=== PATIENT | female | born 1980 | race Caucasian/White ===

== ENCOUNTER 2017-02-12 18:01 | Emergency (ER) | payer OTHER ==
[2017-02-12] MEDS ORDERED: hydrOXYzine HCL TAB* 50 MG PO ONE (21:48)
[2017-02-12] MEDS ORDERED: Azithromycin TAB* 250 MG PO ONE (21:48)
--- NOTE | 2017-02-12 21:48 | ED ---
Skin Complaint - HPI Summary HPI Summary: Patient SUSAN from [employer] [facility] with CC of approximately 6-8 small .5cm X .5cm pruritic erythematous lesions with central yellow pustule without drainage. She states all lesions have been draining, but just none currently. She was placed on Doxycycline 3 days ago at which times all the lesions developed. She notes to previous allergic reaction to doxycycline as an anaphylactic reaction. She states she also has been intubated before d/t a cillin allergy and states her body does not react well to antibiotics. Lyme disease was confirmed by serology 8 days ago. She prefers to have a different agent to treat her Lyme disease. Denies COSME, urinary symptoms, or other symptoms. No HX of MRSA. - History of Current Complaint Chief Complaint: EDRashSkinAbscess Time Seen by Provider: 02/12/17 20:08 Stated Complaint: POSSIBLE ALLERGIC REACTION Hx Obtained From: Patient Onset/Duration: Started Days Ago Skin Exposure Onset/Duration: Hours Ago Timing: Constant Onset Severity: Moderate Current Severity: Moderate Pain Intensity: 0 Pain Scale Used: 0-10 Numeric Skin Location: Diffuse - only to the right side Character: Pain, Redness, Raised, Painful Aggravating Symptom(s): Nothing Alleviating Symptom(s): Nothing Associated Signs & Symptoms: Negative Related History: Recent change in medication - Allergy/Home Medications Allergies/Adverse Reactions: Allergies Allergy/AdvReac Type Severity Reaction Status Date / Time Amoxicillin Allergy Swelling Verified 02/12/17 20:29 Of Face,Lips,& Throat PMH/Surg Hx/FS Hx/Imm Hx Previously Healthy: Yes - Immunization History Hx Pertussis Vaccination: No Immunizations Up to Date: Yes Infectious Disease History: No Infectious Disease History: Denies: Traveled Outside the [place] in Last 30 Days - Social History Occupation: Unemployed Lives: With Family Alcohol Use: None Hx Substance Use: No Substance Use Type: Reports: None Substance Use Comment - Amount & Last Used: hx crack use, clean for 194days Hx Tobacco Use: No Smoking Status (MU): Former Smoker Do You Chew or Dip Tobacco: No Have You Chewed or Dipped Tobacco in the LAST YEAR: No Review of Systems Constitutional: Negative Eyes: Negative Cardiovascular: Negative Respiratory: Negative Positive: no symptoms reported, see HPI Musculoskeletal: Negative Positive: Rash Neurological: Negative Psychological: Normal All Other Systems Reviewed And Are Negative: Yes Physical Exam Triage Information Reviewed: Yes Vital Signs On Initial Exam: Initial Vitals Temp Pulse Resp BP Pulse Ox 99.4 F 80 16 113/74 100 02/12/17 18:05 02/12/17 18:05 02/12/17 18:05 02/12/17 18:05 02/12/17 18:05 Completion Of Physical Exam Limited Due To: Dementia Appearance: Positive: Well-Appearing, Well-Nourished Skin: Positive: Warm, Skin Color Reflects Adequate Perfusion, Other - small .5cm X .5cm ulcerated lesions with central pustule with surrounding erythema over right side of body - 8 in count Neck: Positive: Supple, No Lymphadenopathy Respiratory/Lung Sounds: Positive: Clear to Auscultation, Breath Sounds Present Cardiovascular: Positive: Normal, RRR, Pulses are Symmetrical in both Upper and Lower Extremities Musculoskeletal: Positive: Normal, Strength/ROM Intact Neurological: Positive: Normal, Sensory/Motor Intact, Alert, Oriented to Person Place, Time, Speech Normal Psychiatric: Positive: Normal AVPU Assessment: Alert Diagnostics - Vital Signs Vital Signs Temp Pulse Resp BP Pulse Ox 02/12/17 20:27 99 F 74 16 119/83 100 02/12/17 18:05 99.4 F 80 16 113/74 100 - Laboratory Lab Statement: Any lab studies that have been ordered have been reviewed, and results considered in the medical decision making process. Course/Dx - Course Course Of Treatment: small .5cm X .5cm ulcerated lesions with central yellow pustule with surrounding erythema and without drainage over right side of body - 8 in count. Patient states the lesions began immediately following doxycycline medication. D/t penicillin allergy, will switch to erythromycin as UTD shows this covers as well as doxycycline in some studies for Lyme disease. At this point, will treat as a drug eruption from doxy. If antibiotic change does not affect the lesions or worsening lesions develop, provider expressed will need to discontinue the Lyme antibiotics at that time, and will likely place her on an antibiotic for skin infections. Patient agrees to return if skin lesions remain. - Differential Diagnoses - Skin Complaint Differential Diagnoses: Angioedema, Cellulitis, Contact Dermatitis, Drug Intoxication, Local Allergic Reaction, Medication; Adverse Reaction - Diagnoses Provider Diagnoses: Drug eruption Discharge - Discharge Plan Condition: Stable Disposition: HOME Prescriptions: Azithromycin TAB* [Zithromax TAB (Z-ARLEY) 250 mg #6 tabs] 2 tab PO .TODAY, THEN 1 DAILY #1 arley Ondansetron ODT TAB* [Zofran 4 MG Odt TAB*] 4 mg PO Q6H PRN #12 tab.odt MDD 4 PRN Reason: Nausea hydrOXYzine HCL TAB* [Atarax 25 MG TAB*] 25 mg PO QID PRN #16 tab MDD 4 PRN Reason: Itching Patient Education Materials: Antibiotic Medication Allergy (ED), Adverse Drug Reaction (ED) Referrals: Non Staff,Doctor [Primary Care Provider] - Additional Instructions: Take the azithromycin as prescribed Take the hydroxyzine up to four times daily as needed for itching, but Benadryl 50mg is best at night. Zofran has been prescribed for the associated nausea If symptoms become worse or do not improve, come back to ED.
[2017-02-12] MEDS ORDERED: hydrOXYzine HCL TAB* 25 MG PO ONE (21:49)
[2017-02-12] MEDS ORDERED: Ondansetron ODT TAB* 4 MG SL ONE ×2 (21:50→21:51)
[2017-02-12 22:17] VITALS: BP 117/81
== END 2017-02-12 22:27 | disposition home or self-care (01) ==
LOC: ED 18:01
DX: L27.0 Generalized skin eruption due to drugs and medicaments taken internally (principal); R21 Rash and other nonspecific skin eruption; Z87.891 Personal history of nicotine dependence
CPT/HCPCS: 99282; A9270-GY

== ENCOUNTER 2017-02-13 14:58 | Emergency (ER) | payer OTHER ==
[2017-02-13 15:21] VITALS: BP 104/75
[2017-02-13] MEDS ORDERED: Azithromycin TAB* 250 MG PO ONE (16:18)
[2017-02-13] MEDS ORDERED: Ondansetron ODT TAB* 4 MG SL ONE ×2 (16:19)
--- NOTE | 2017-02-13 16:37 | ED ---
Skin Complaint - HPI Summary HPI Summary: Patient presents to ED with request for medication. She was seen in ED yesterday and given prescription for erythromycin to cover lyme disease ( diagnosed at another facility 9 days ago.) Patient is allergic to doxycycline and amoxicillin. 500mg of erythrymycin given in ED. Patient is from [employer] [facility] program and returns today because prescriptions will not be delivered until tomorrow. She is also requesting zofran for associated nausea with the medication. Rash which was presumably a drug rash from the doxycycline is improving. No other complaints. - History of Current Complaint Chief Complaint: EDPrescriptionNeeded Time Seen by Provider: 02/13/17 15:54 Stated Complaint: SYMPTOMS OF lyme disease Hx Obtained From: Patient Onset/Duration: Started Days Ago Skin Exposure Onset/Duration: Days Ago Timing: Constant Onset Severity: Mild Current Severity: Mild Pain Intensity: 0 Pain Scale Used: 0-10 Numeric Skin Location: Diffuse Aggravating Symptom(s): Nothing Alleviating Symptom(s): Nothing Associated Signs & Symptoms: Nausea Related History: Recent change in medication - Allergy/Home Medications Allergies/Adverse Reactions: Allergies Allergy/AdvReac Type Severity Reaction Status Date / Time Amoxicillin Allergy Swelling Verified 02/12/17 20:29 Of Face,Lips,& Throat PMH/Surg Hx/FS Hx/Imm Hx Previously Healthy: Yes - Immunization History Hx Pertussis Vaccination: No Immunizations Up to Date: No Infectious Disease History: Denies: Traveled Outside the [place] in Last 30 Days - Social History Occupation: Unemployed Lives: Alone Alcohol Use: None Hx Substance Use: No Substance Use Type: Reports: None Substance Use Comment - Amount & Last Used: hx crack use, clean for 194days Hx Tobacco Use: No Smoking Status (MU): Former Smoker Review of Systems Constitutional: Negative Eyes: Negative Cardiovascular: Negative Respiratory: Negative Positive: no symptoms reported, see HPI Musculoskeletal: Negative Positive: Other - improving pustules from yesterday visit Neurological: Negative Psychological: Normal All Other Systems Reviewed And Are Negative: Yes Physical Exam Triage Information Reviewed: Yes Vital Signs On Initial Exam: Initial Vitals Temp Pulse Resp BP Pulse Ox 98.6 F 80 18 104/75 100 02/13/17 15:16 02/13/17 15:16 02/13/17 15:16 02/13/17 15:16 02/13/17 15:16 Vital Signs Reviewed: Yes Appearance: Positive: Well-Appearing, Well-Nourished Skin: Positive: Warm, Skin Color Reflects Adequate Perfusion, Other - pustules located over right arm and right leg. improving since yesterday after changing medication Eyes: Positive: Normal, SHAWN, Conjunctiva Clear Neck: Positive: Supple, No Lymphadenopathy Respiratory/Lung Sounds: Positive: Clear to Auscultation, Breath Sounds Present Cardiovascular: Positive: Normal, RRR, Pulses are Symmetrical in both Upper and Lower Extremities Musculoskeletal: Positive: Normal, Strength/ROM Intact Neurological: Positive: Sensory/Motor Intact, Speech Normal Psychiatric: Positive: Normal Diagnostics - Vital Signs Vital Signs Temp Pulse Resp BP Pulse Ox 02/13/17 15:16 98.6 F 80 18 104/75 100 - Laboratory Lab Statement: Any lab studies that have been ordered have been reviewed, and results considered in the medical decision making process. Course/Dx - Course Course Of Treatment: Patient given erythrmycin 250mg with zofran in ED. 1 dose zofran to go home. Presciription will arrive tomorrow. Patient states rash is improving. - Differential Diagnoses - Skin Complaint Differential Diagnoses: Allergic Reaction, Contact Dermatitis, Drug Rash, Jacques-Con Syndrome - Diagnoses Provider Diagnoses: Medication refill Discharge - Discharge Plan Condition: Stable Disposition: HOME Patient Education Materials: Erythromycin (By mouth) Referrals: No Primary Care Phys,NOPCP [Primary Care Provider] - Additional Instructions: Take 3 more days (February 14, February 15, February 16) at 250mg (1 dose) each of erythromycin. Dispense of other/extra tabs properly. Use the zofran as needed for nausea. Come back to ED if symptoms continue or worsen.
== END 2017-02-13 16:41 | disposition home or self-care (01) ==
LOC: ED 14:58
DX: A69.20 Lyme disease, unspecified (principal); Z88.1 Allergy status to other antibiotic agents; Z87.891 Personal history of nicotine dependence
CPT/HCPCS: 99282; A9270-GY

== ENCOUNTER 2017-02-19 10:55 | Emergency (ER) | payer OTHER ==
[2017-02-19 14:37] LABS: Hematocrit 40 % (35-47); Hemoglobin 13.3 g/dl (12.0-16.0); Mean Corpuscular HGB Conc 34 g/dl (31-36); Mean Corpuscular Hemoglobin 31 pg (27-31); Mean Corpuscular Volume 93 fL (80-97); Mean Platelet Volume 9 um3 (7.4-10.4); Red Blood Count 4.28 10^6/ul (4.0-5.4); Red Cell Distribution Width 13 % (10.5-15); White Blood Count 7.3 10^3/ul (3.5-10.8)
[2017-02-19 14:49] LABS: ALT 17 U/L (7-52); AST 21 U/L (13-39); Albumin 4.2 g/dL (3.2-5.2); Alkaline Phosphatase 37 U/L (34-104); Anion Gap 5 mmol/L (2-11); BUN/Creatinine Ratio 13.9 (8-20); Blood Urea Nitrogen 10 mg/dL (6-24); CO2 Carbon Dioxide 24 mmol/L (22-32); Calcium 9.3 mg/dL (8.6-10.3); Chloride 107 mmol/L (101-111); EGFR African American 117.9 (>60); EGFR Non-African American 91.7 (>60); Globulin 2.6 g/dL (2-4); Glucose 89 mg/dL (70-100); Magnesium 2.2 mg/dL (1.9-2.7); Potassium 3.9 mmol/L (3.5-5.0); Sodium 136 mmol/L (133-145); Total Protein 6.8 g/dL (6.4-8.9)
[2017-02-19 15:41] VITALS: BP 110/73
[2017-02-19] MEDS ORDERED: carBAMazepine ER TAB(*) 200 MG PO ONE (15:46)
[2017-02-19] MEDS ORDERED: carBAMazepine TAB(*) 200 MG PO ONE (17:00)
--- NOTE | 2017-02-20 14:58 | ED ---
Alexis Copeland Rebecca, scribed for Danis Alfonso MD on 02/19/17 at 1349 . Neurological HPI - HPI Summary HPI Summary: Pt is a 36 y/o F BIBA who presents to ED s/p seizure, which occurred last night. Episode was unwitnessed, pt is unsure of length and type. Reports that her head is "foggy" and that her "nerve endings are sore." Sx aggravated by recent stress and "overworking," alleviated spontaneously. Additionally c/o increased sleep and a pruritic rash on her back. PMHx seizures. Previously was on Tegretol, which she took herself off of 1 year ago due to side effects. Neurologist is Dr. Moreno. Last sz occurred a "long time ago," and she additionally experienced a TIA. Prior episode presented with pain in her back and abdomen and diffuse bodily numbness. Pt was evaluated by [facility] and was D/C after approximately 8 hours. - History of Current Complaint Chief Complaint: EDSeizure Stated Complaint: SEIZURE Time Seen by Provider: 02/19/17 13:48 Hx Obtained From: Patient Onset/Duration: Sudden Onset Seizure Severity: Self Limited Number of Seizures: 1 Pain Intensity: 0 Pain Scale Used: 0-10 Numeric Aggravating: Exertion - "overworking", Stress Alleviating: Spontanious Resolution - Allergy/Home Medications Allergies/Adverse Reactions: Allergies Allergy/AdvReac Type Severity Reaction Status Date / Time Amoxicillin Allergy Swelling Verified 02/12/17 20:29 Of Face,Lips,& Throat PMH/Surg Hx/FS Hx/Imm Hx Endocrine/Hematology History: Denies: Hx Diabetes Neurological History: Reports: Hx Seizures - Surgical History Surgery Procedure, Year, and Place: APPY Infectious Disease History: No Infectious Disease History: Denies: Traveled Outside the [place] in Last 30 Days - Family History Known Family History: Positive: Other - Cervical and Ovarian CA (diffuse) Negative: Hypertension, Diabetes - Social History Alcohol Use: None Hx Substance Use: No Substance Use Type: Reports: None Substance Use Comment - Amount & Last Used: hx crack use, clean for 194days Hx Tobacco Use: No Smoking Status (MU): Former Smoker Review of Systems Positive: Rash - pruritic rash on back Neurological: Other - s/p seizure - "foggy" head and "sore" nerve endings; increased sleep All Other Systems Reviewed And Are Negative: Yes Physical Exam Triage Information Reviewed: Yes Vital Signs On Initial Exam: Initial Vitals Temp Pulse Resp BP Pulse Ox 98.2 F 75 17 99/74 100 02/19/17 11:22 02/19/17 11:22 02/19/17 11:22 02/19/17 11:22 02/19/17 11:22 Vital Signs Reviewed: Yes Appearance: Positive: Well-Appearing, No Pain Distress Skin: Positive: Warm, Dry, Other - Macular punctate rash on her R flank that has excoriations and a very excoriated area on her R deltoid Head/Face: Positive: Normal Head/Face Inspection Eyes: Positive: Normal Neck: Positive: Supple, Nontender Respiratory/Lung Sounds: Positive: Clear to Auscultation, Breath Sounds Present Cardiovascular: Positive: RRR Abdomen Description: Positive: Nontender, Soft Bowel Sounds: Positive: Present Musculoskeletal: Positive: Normal Neurological: Positive: Normal, Sensory/Motor Intact, Alert, Oriented to Person Place, Time, CN Intact II-III Psychiatric: Positive: Normal Diagnostics - Vital Signs Vital Signs Temp Pulse Resp BP Pulse Ox 02/19/17 13:47 73 87 02/19/17 13:14 71 96 02/19/17 13:13 70 96 02/19/17 13:12 70 96 02/19/17 13:11 69 96 02/19/17 13:10 70 96 02/19/17 13:09 67 96 02/19/17 13:08 69 96 02/19/17 13:07 71 96 02/19/17 13:06 72 97 02/19/17 13:05 71 97 02/19/17 13:04 71 97 02/19/17 13:00 69 97 02/19/17 12:00 72 97 02/19/17 11:30 76 99/70 98 02/19/17 11:26 98.2 F 79 17 98/74 99 02/19/17 11:25 76 99 02/19/17 11:23 99/80 02/19/17 11:22 98.2 F 75 17 99/74 100 - Laboratory Lab Results: Lab Results 02/19/17 02/19/17 02/19/17 Range/Units 14:26 14:26 14:26 WBC 7.3 (3.5-10.8) 10^3/ul RBC 4.28 (4.0-5.4) 10^6/ul Hgb 13.3 (12.0-16.0) g/dl Hct 40 (35-47) % MCV 93 (80-97) fL MCH 31 (27-31) pg MCHC 34 (31-36) g/dl RDW 13 (10.5-15) % Plt Count 236 (150-450) 10^3/ul MPV 9 (7.4-10.4) um3 Neut % (Auto) 57.2 (38-83) % Lymph % (Auto) 33.5 (25-47) % Radford % (Auto) 6.6 (1-9) % Eos % (Auto) 1.8 (0-6) % Baso % (Auto) 0.9 (0-2) % Absolute Neuts (auto) 4.2 (1.5-7.7) 10^3/ul Absolute Lymphs (auto) 2.4 (1.0-4.8) 10^3/ul Absolute Monos (auto) 0.5 (0-0.8) 10^3/ul Absolute Eos (auto) 0.1 (0-0.6) 10^3/ul Absolute Basos (auto) 0.1 (0-0.2) 10^3/ul Absolute Nucleated RBC 0.01 10^3/ul Nucleated RBC % 0.2 INR (Anticoag Therapy) 0.92 (0.89-1.11) Sodium 136 (133-145) mmol/L Potassium 3.9 (3.5-5.0) mmol/L Chloride 107 (101-111) mmol/L Carbon Dioxide 24 (22-32) mmol/L Anion Gap 5 (2-11) mmol/L BUN 10 (6-24) mg/dL Creatinine 0.72 (0.51-0.95) mg/dL Est GFR ( Amer) 117.9 (>60) Est GFR (Non-Af Amer) 91.7 (>60) BUN/Creatinine Ratio 13.9 (8-20) Glucose 89 (70-100) mg/dL Lactic Acid (0.5-2.0) mmol/L Calcium 9.3 (8.6-10.3) mg/dL Magnesium 2.2 (1.9-2.7) mg/dL Total Bilirubin 0.50 (0.2-1.0) mg/dL AST 21 (13-39) U/L ALT 17 (7-52) U/L Alkaline Phosphatase 37 (34-104) U/L Total Protein 6.8 (6.4-8.9) g/dL Albumin 4.2 (3.2-5.2) g/dL Globulin 2.6 (2-4) g/dL Albumin/Globulin Ratio 1.6 (1-3) Beta HCG, Quant < 0.60 mIU/mL 02/19/17 Range/Units 14:26 WBC (3.5-10.8) 10^3/ul RBC (4.0-5.4) 10^6/ul Hgb (12.0-16.0) g/dl Hct (35-47) % MCV (80-97) fL MCH (27-31) pg MCHC (31-36) g/dl RDW (10.5-15) % Plt Count (150-450) 10^3/ul MPV (7.4-10.4) um3 Neut % (Auto) (38-83) % Lymph % (Auto) (25-47) % Radford % (Auto) (1-9) % Eos % (Auto) (0-6) % Baso % (Auto) (0-2) % Absolute Neuts (auto) (1.5-7.7) 10^3/ul Absolute Lymphs (auto) (1.0-4.8) 10^3/ul Absolute Monos (auto) (0-0.8) 10^3/ul Absolute Eos (auto) (0-0.6) 10^3/ul Absolute Basos (auto) (0-0.2) 10^3/ul Absolute Nucleated RBC 10^3/ul Nucleated RBC % INR (Anticoag Therapy) (0.89-1.11) Sodium (133-145) mmol/L Potassium (3.5-5.0) mmol/L Chloride (101-111) mmol/L Carbon Dioxide (22-32) mmol/L Anion Gap (2-11) mmol/L BUN (6-24) mg/dL Creatinine (0.51-0.95) mg/dL Est GFR ( Amer) (>60) Est GFR (Non-Af Amer) (>60) BUN/Creatinine Ratio (8-20) Glucose (70-100) mg/dL Lactic Acid 0.8 (0.5-2.0) mmol/L Calcium (8.6-10.3) mg/dL Magnesium (1.9-2.7) mg/dL Total Bilirubin (0.2-1.0) mg/dL AST (13-39) U/L ALT (7-52) U/L Alkaline Phosphatase (34-104) U/L Total Protein (6.4-8.9) g/dL Albumin (3.2-5.2) g/dL Globulin (2-4) g/dL Albumin/Globulin Ratio (1-3) Beta HCG, Quant mIU/mL Result Diagrams: 02/19/17 14:26 02/19/17 14:26 Lab Statement: Any lab studies that have been ordered have been reviewed, and results considered in the medical decision making process. Re-Evaluation - Re-Evaluation First Eval Re-Evaluation Time: 15:03 Change: Unchanged Comment: Discussed lab results with pt. Course/Dx - Course Assessment/Plan: Ms. Bunch is a 36 y/o F who presents s/p unwitnessed seizure c/o "foggy" head and sore nerve endings. Additionally c/o increased sleep and a pruritic rash on her back. PMHx seizures. Administered Tegretol in the ED. She will be D/C to home with a Dx of seizure and a followup with Dr. Cuevas. She was started back on her tegretol at a low dose and will need to F/ U as it will likely need to be increased. - Diagnoses Provider Diagnoses: Seizure Discharge - Discharge Plan Condition: Stable Disposition: HOME Prescriptions: Triamcinolone 0.1% CREAM(NF) [Kenalog Cream 0.1%(NF)] 1 applic TOPICAL BID #60 tube carBAMazepine ER TAB(*) [TEGretol Xr TAB(*)] 200 mg PO BID #20 tab.xr Patient Education Materials: Epilepsy (ED) Referrals: Jack Cuevas MD [Medical Doctor] - 3 Days The documentation as recorded by the Alexis echeverria Rebecca accurately reflects the service I personally performed and the decisions made by , Danis Alfonso MD.
== END 2017-02-19 17:00 | disposition home or self-care (01) ==
LOC: ED 10:55
DX: R56.9 Unspecified convulsions (principal); R21 Rash and other nonspecific skin eruption; Z87.891 Personal history of nicotine dependence
CPT/HCPCS: 36415; 80053; 83605; 83735; 84702; 85025; 85610; 99283; A9270-GY

== ENCOUNTER → 2017-02-23 13:25 | Emergency (ER) | payer OTHER ==
[2017-02-23 16:45] LABS: Albumin 4.1 g/dL (3.2-5.2); EGFR African American 121.8 (>60); EGFR Non-African American 94.7 (>60); Globulin 2.7 g/dL (2-4); Magnesium 2.3 mg/dL (1.9-2.7); Total Bilirubin 0.2 mg/dL (0.2-1.0); Total Protein 6.8 g/dL (6.4-8.9)
[2017-02-23 16:48] VITALS: BP 107/59
[2017-02-23 17:02] LABS: Hematocrit 39 % (35-47); Mean Corpuscular HGB Conc 34 g/dl (31-36); Mean Corpuscular Hemoglobin 31 pg (27-31); Mean Corpuscular Volume 92 fL (80-97); Mean Platelet Volume 9 um3 (7.4-10.4); Red Blood Count 4.17 10^6/ul (4.0-5.4); Red Cell Distribution Width 13 % (10.5-15); White Blood Count 5.1 10^3/ul (3.5-10.8)
[2017-02-23 17:07] LABS: Urine Bacteria Absent (Absent); Urine Bilirubin Negative (Negative); Urine Glucose Negative (Negative); Urine Nitrite Negative (Negative)
[2017-02-23 17:27] LABS: Carbamazepine 13.5 mcg/mL (4.0-12.0)
--- NOTE | 2017-02-26 07:01 | ED ---
vinod Copeland Timothy, scribed for Jose Martin Mina MD on 02/23/17 at 1548 . Altered Mental Status - HPI Summary HPI Summary: Karine Bunch is a 36 yo female presenting to [facility] with AMS, feeling like her equilibrium is off and lethargic since starting tegretol 02/20/17, and that she had grapefruit. She presented to [facility] 02/19/17 with seizure. She is here for her tegretol level. Per EMS, she developed 5/10 CP on arrival to [facility]. She states she is also on antibiotics for a diffuse pruritic, purulent, rash. She also claims a low-grade fever for the past 10 days. She denies any urinary Sx. She states her menstrual period for the past 3 cycles has only lasted one day. She has been feeling lethargic for the past 20 days. She states that she is back on tegretol because of her seizure 02/19/17. Her MHx includes seizure, appendectomy. - History Of Current Complaint Chief Complaint: EDGeneral Stated Complaint: MED CHANGE Time Seen by Provider: 02/23/17 15:30 Hx Obtained From: Patient Onset/Duration: Unknown, Still Present Timing: Constant Severity Initially: Moderate Severity Currently: Moderate Character: Confusion, Lethargy Associated Signs And Symptoms: Positive: Dizziness - Allergies/Home Medications Allergies/Adverse Reactions: Allergies Allergy/AdvReac Type Severity Reaction Status Date / Time Amoxicillin Allergy Swelling Verified 02/12/17 20:29 Of Face,Lips,& Throat PMH/Surg Hx/FS Hx/Imm Hx Endocrine/Hematology History: Denies: Hx Diabetes Neurological History: Reports: Hx Seizures - Surgical History Surgery Procedure, Year, and Place: APPY Infectious Disease History: Denies: Traveled Outside the [place] in Last 30 Days - Family History Known Family History: Positive: Other - Cervical and Ovarian CA (diffuse) Negative: Hypertension, Diabetes - Social History Alcohol Use: None Hx Substance Use: No Substance Use Type: Reports: None Substance Use Comment - Amount & Last Used: hx crack use, clean for 194days Hx Tobacco Use: No Smoking Status (MU): Former Smoker Review of Systems Positive: Fever. Negative: Chills Eyes: Negative Negative: Erythema ENT: Negative Negative: Sore Throat Positive: Chest Pain Respiratory: Negative Negative: Shortness Of Breath, Cough Gastrointestinal: Negative Negative: Abdominal Pain, Vomiting, Nausea Genitourinary: Negative Negative: dysuria, hematuria Musculoskeletal: Negative Negative: Edema - legs Positive: Rash - diffuse pruritic, purulent Neurological: Other - lethargy, "equilibrium off", seizure 02/19/17 Psychological: Normal All Other Systems Reviewed And Are Negative: Yes Physical Exam - Summary Physical Exam Summary: Constitutional: Well-developed, Well-nourished, Alert. (-) Distressed Skin: Warm, Dry HENT: Eyes: Conjunctiva normal Neck: Musculoskeletal ROM normal neck. (-) JVD, (-) Stridor, (-) Tracheal deviation Cardio: Rhythm regular, rate normal, Heart sounds normal; Intact distal pulses; The pedal pulses are 2+ and symmetric. Radial pulses are 2+ and symmetric. (-) Murmur Pulmonary/Chest wall: Effort normal. (-) Respiratory distress, (-) Wheezes, (-) Rales Abd: Soft. (-) Tenderness, (-) Distension, (-) Guarding, (-) Rebound Musculoskeletal: (-) Edema Lymph: (-) Cervical adenopathy Neuro: Alert, Oriented x3, Strength normal, Cranial nerves II-XII are grossly intact. (-) Dysmetria, (-) Nystagmus, (-) Ataxia by finger to nose testing, (-) Sensory deficit. Rhonberg's negative. Psych: Mood and affect Normal Triage Information Reviewed: Yes Vital Signs On Initial Exam: Initial Vitals Temp Pulse Resp BP Pulse Ox 98.1 F 91 18 109/71 96 02/23/17 14:13 02/23/17 14:13 02/23/17 14:13 02/23/17 14:13 02/23/17 14:13 Vital Signs Reviewed: Yes Diagnostics - Vital Signs Vital Signs Temp Pulse Resp BP Pulse Ox 02/23/17 14:13 98.1 F 91 18 109/71 96 - Laboratory Result Diagrams: 02/23/17 16:13 02/23/17 16:12 Lab Statement: Any lab studies that have been ordered have been reviewed, and results considered in the medical decision making process. - EKG 1429 Cardiac Rate: NL - 79 BPM EKG Interpretation: NSR @ 79 BPM, no STEMI. Altered Mental Statu Course/Dx - Course Assessment/Plan: Karine Bunch is a 36 yo female presenting to [facility] with the feeling of "off equilibrium" and lethargy since beginning tegretol 02/20/17. She ate grapefruit while on antibiotics as well. She was seen at [facility] 02/19/17 for seizure. Of note is her carbamazepine levels of 13.5. Pt states she does not want to be on tegretol, but feels she has no other option. Pt expresses the wish to be discharged. After clinical examination and review of her lab work, she will be discharged home with tegretol toxicity and appropriate instructions. - Diagnoses Discharge Diagnoses: Tegretol toxicity Discharge - Discharge Plan Condition: Stable Disposition: HOME Patient Education Materials: Carbamazepine (By mouth) Forms: *Work Release Referrals: [facility] [Outside] - 2 Days Additional Instructions: Please follow up with the primary care physician provided regarding your visit to the emergency department. Take 100mg of tegretol twice a day, half of a 200 mg tablet, for the next week. You need 24 hours of bed rest. Return to the emergency department with any new or recurring symptoms. The documentation as recorded by the vinod echeverria Timothy accurately reflects the service I personally performed and the decisions made by me, Jose Martin Mina MD.
--- NOTE | 2017-02-26 09:01 | PN ---
Progress Note - Progress Note Note: Seen for AMS, med change. Patient's urine preliminary results grew >100,000 of streptococcus gallolyticus. Also normal jose armando. Will wait for final culture results to see if patient is having symptoms and treatment is needed. No change needed at this time.
--- NOTE | 2017-02-27 09:47 | PN ---
Progress Note - Progress Note Note: Patient urine culture grew Strept gallolyticus that final cultures show is resistant to most antibiotics. She denies any UTI symptoms according to chart. attempted to call [facility] to get a hold of patient and patient is no longer patient of [facility]. tried other phone number and person answered and stated had wrong phone number. Would prescribe levofloxacin since is inhibit as all other medication sensitive to is IV and patient has anaphylactic reaction to PCN. Patient pharmacy is [facility] which is used by [facility] so can not send script there. Called patient at [facility] and patient answered. Patient denies any UTI symptoms at all so will not treat.
== END | disposition home or self-care (01) ==
LOC: ED 13:25
DX: T42.1X1A Poisoning by iminostilbenes, accidental (unintentional), initial encounter (principal); R42 Dizziness and giddiness; R07.9 Chest pain, unspecified; R21 Rash and other nonspecific skin eruption
CPT/HCPCS: 36415; 80053; 80156; 81003; 81015; 83735; 85025; 87077; 87086; 87186; 93005; 99281

== ENCOUNTER 2017-02-26 14:32 | Emergency (ER) | payer OTHER ==
[2017-02-26 15:54] LABS: Hematocrit 39 % (35-47); Hemoglobin 12.8 g/dl (12.0-16.0); Mean Corpuscular HGB Conc 33 g/dl (31-36); Mean Corpuscular Hemoglobin 31 pg (27-31); Mean Corpuscular Volume 93 fL (80-97); Mean Platelet Volume 9 um3 (7.4-10.4); Red Blood Count 4.17 10^6/ul (4.0-5.4); Red Cell Distribution Width 13 % (10.5-15); White Blood Count 6.5 10^3/ul (3.5-10.8)
[2017-02-26 16:19] LABS: Albumin 4.3 g/dL (3.2-5.2); BUN/Creatinine Ratio 16.4 (8-20); Calcium 9.5 mg/dL (8.6-10.3); EGFR African American 128.1 (>60); EGFR Non-African American 99.6 (>60); Globulin 2.6 g/dL (2-4); Magnesium 1.9 mg/dL (1.9-2.7); Potassium 3.9 mmol/L (3.5-5.0); Total Bilirubin 0.2 mg/dL (0.2-1.0); Total Protein 6.9 g/dL (6.4-8.9)
[2017-02-26 16:28] LABS: Carbamazepine 5.3 mcg/mL (4.0-12.0)
[2017-02-26 16:48] VITALS: BP 124/82
--- NOTE | 2017-02-26 22:01 | ED ---
Luis Fernando Copeland Auryana, scribed for Raúl Saavedra MD on 02/26/17 at 1528 . Dizziness - HPI Summary HPI Summary: 36 year old female presents with dizziness starting 3 days ago. She reports that she has felt increasingly off balance for the last few days and has had a lowered dose of Tegretol. She was recently admitted due to high levels of Tegretol (patient was on doxycycline at the time)- and since then has had a lower dose. She is requesting a prescription for Tegretol so that she can return to her normal dose-feels that her symptoms are directly related. She is a patient at [employer]. PMHx is significant for seizures and cocaine abuse ( currently clean). She denies any alcohol or recreational drug use. - History Of Current Complaint Chief Complaint: EDPrescriptionNeeded Stated Complaint: DIZZY Time Seen by Provider: 02/26/17 14:58 Hx Obtained From: Patient Onset/Duration: Still Present Timing: Constant Severity Initially: Mild Severity Currently: Mild Character: Dizzy Aggravating Factor(s): Other - recent medication decrease Associated Signs And Symptoms: Positive: Unsteady Gait - "off balance", Change In Medication - Allergies/Home Medications Allergies/Adverse Reactions: Allergies Allergy/AdvReac Type Severity Reaction Status Date / Time Amoxicillin Allergy Swelling Verified 02/12/17 20:29 Of Face,Lips,& Throat PMH/Surg Hx/FS Hx/Imm Hx Endocrine/Hematology History: Denies: Hx Diabetes Neurological History: Reports: Hx Seizures Psychiatric History: Reports: Hx Substance Abuse - cocaine - currently clean 103 days (02/26/17) - Surgical History Surgery Procedure, Year, and Place: [facility] Infectious Disease History: No Infectious Disease History: Denies: Traveled Outside the [place] in Last 30 Days - Family History Known Family History: Positive: Other - Cervical and Ovarian CA (diffuse) Negative: Hypertension, Diabetes - Social History Occupation: Unemployed Lives: [facility] - [employer] Alcohol Use: None Hx Substance Use: No - currently no SA Substance Use Type: Reports: Cocaine Substance Use Comment - Amount & Last Used: hx crack use, clean for 194days Hx Tobacco Use: No Smoking Status (MU): Former Smoker Review of Systems Positive: Other - "off-balance", dizziness Eyes: Negative ENT: Negative Cardiovascular: Negative Respiratory: Negative Gastrointestinal: Negative Genitourinary: Negative Musculoskeletal: Negative Skin: Negative Neurological: Negative Psychological: Normal All Other Systems Reviewed And Are Negative: Yes Physical Exam - Summary Physical Exam Summary: The patient is well-nourished in no acute distress and in no acute pain. The skin is warm and dry and skin color reflects adequate perfusion. Good skin turgor. HEENT: The head is normocephalic and atraumatic. The pupils are equal and reactive. EOMI. The conjunctivae are clear and without drainage. Nares are patent and without drainage. Mouth reveals moist mucous membranes and the throat is without erythema and exudate. The external ears are intact. The ear canals are patent and without drainage. The tympanic membranes are intact. Neck is supple with full range of motion and non-tender. There are no carotid bruits. There is no neck vein distension. Respiratory: Chest is non-tender. Lungs are clear to auscultation and breath sounds are symmetrical and equal. Cardiovascular: Hear is regular rate and rhythm. There is no murmur or rub auscultated. There is no peripheral edema and pulses are symmetrical and equal. Abdomen: The abdomen is soft and non-tender. There are normal bowel sounds heard in all four quadrants and there is no organomegaly palpated. Musculoskeletal: There is no back pain noted. Extremities are non-tender with full range of motion-good strength in extremities. There is good capillary refill. There is no peripheral edema or calf tenderness elicited. Neurological: Patient is alert and oriented to person, place and time. The patient has symmetrical motor strength in all four extremities. Cranial nerves are grossly intact. Deep tendon reflexes are symmetrical and equal in all four extremities. Psychiatric: The patient appears anxious. Triage Information Reviewed: Yes Vital Signs On Initial Exam: Initial Vitals Temp Pulse Resp BP Pulse Ox 98.7 F 94 22 123/85 100 02/26/17 14:36 02/26/17 14:36 02/26/17 14:36 02/26/17 14:36 02/26/17 14:36 Vital Signs Reviewed: Yes Diagnostics - Vital Signs Vital Signs Temp Pulse Resp BP Pulse Ox 02/26/17 14:38 98.7 F 96 22 132/85 99 02/26/17 14:36 98.7 F 94 22 123/85 100 - Laboratory Lab Results: Lab Results 02/26/17 02/26/17 Range/Units 15:40 15:40 WBC 6.5 (3.5-10.8) 10^3/ul RBC 4.17 (4.0-5.4) 10^6/ul Hgb 12.8 (12.0-16.0) g/dl Hct 39 (35-47) % MCV 93 (80-97) fL MCH 31 (27-31) pg MCHC 33 (31-36) g/dl RDW 13 (10.5-15) % Plt Count 230 (150-450) 10^3/ul MPV 9 (7.4-10.4) um3 Neut % (Auto) 39.9 (38-83) % Lymph % (Auto) 51.2 H (25-47) % [place] % (Auto) 8.2 (1-9) % Eos % (Auto) 0 (0-6) % Baso % (Auto) 0.7 (0-2) % Absolute Neuts (auto) 2.6 (1.5-7.7) 10^3/ul Absolute Lymphs (auto) 3.4 (1.0-4.8) 10^3/ul Absolute Monos (auto) 0.5 (0-0.8) 10^3/ul Absolute Eos (auto) 0 (0-0.6) 10^3/ul Absolute Basos (auto) 0 (0-0.2) 10^3/ul Absolute Nucleated RBC 0.01 10^3/ul Nucleated RBC % 0.1 Sodium 136 (133-145) mmol/L Potassium 3.9 (3.5-5.0) mmol/L Chloride 106 (101-111) mmol/L Carbon Dioxide 25 (22-32) mmol/L Anion Gap 5 (2-11) mmol/L BUN 11 (6-24) mg/dL Creatinine 0.67 (0.51-0.95) mg/dL Est GFR ( Amer) 128.1 (>60) Est GFR (Non-Af Amer) 99.6 (>60) BUN/Creatinine Ratio 16.4 (8-20) Glucose 101 H (70-100) mg/dL Calcium 9.5 (8.6-10.3) mg/dL Magnesium 1.9 (1.9-2.7) mg/dL Total Bilirubin 0.20 (0.2-1.0) mg/dL AST 19 (13-39) U/L ALT 17 (7-52) U/L Alkaline Phosphatase 48 (34-104) U/L Total Protein 6.9 (6.4-8.9) g/dL Albumin 4.3 (3.2-5.2) g/dL Globulin 2.6 (2-4) g/dL Albumin/Globulin Ratio 1.7 (1-3) Carbamazepine 5.3 (4.0-12.0) mcg/mL Result Diagrams: 02/26/17 15:40 02/26/17 15:40 Lab Statement: Any lab studies that have been ordered have been reviewed, and results considered in the medical decision making process. Re-Evaluation - Re-Evaluation First Eval Re-Evaluation Time: 16:35 - discussed labs and plan of action Change: Unchanged Comment: complains of Left ahdn numbness but no motor weakness present. Patient agrees to discharge. Dizzy Course/Dx - Course Assessment/Plan: 36 year old female presents with dizziness starting 3 days ago. She reports that she has felt increasingly off balance for the last few days and has had a lowered dose of Tegretol. She was recently admitted due to high levels of Tegretol and since then has had a lower dose 100 mg. She is requesting a prescription for 200 mg Tegretol so that she can return to her normal dose-feels that her symptoms are directly related. PMHx is significant for seizures and cocaine abuse (currently clean). Labs ordered: within normal limits. Carbamazepine levels taken (5.3). Re-evaluation of patient to discuss labs and plan of action. Complains of left hand numbness but no motor weakness. Patient agrees with discharge. Will discharge patient home recommending continuation of Tegretol 200mg twice daily. Diagnosis of seizure disorder - no evidence of tegretol toxicity (WNL on lab work). - Diagnoses Differential Diagnosis/HQI/PQRI: Hypovolemia, Metabolic Abnormality, Seizure, Other - tegretol toxicity, hyponatremia Provider Diagnoses: Seizure disorder Discharge - Discharge Plan Condition: Stable Disposition: HOME Patient Education Materials: Nonepileptic Seizures (ED), Carbamazepine (By mouth) Referrals: [facility] [place] [facility] [Outside] Additional Instructions: PLEASE TAKE TEGRETOL 200MG TWICE A DAY. The documentation as recorded by the Luis Fernando echeverria Auryana accurately reflects the service I personally performed and the decisions made by me, Raúl Saavedra MD.
== END 2017-02-26 17:21 | disposition home or self-care (01) ==
LOC: ED 14:32
DX: G40.909 Epilepsy, unspecified, not intractable, without status epilepticus (principal); Z87.891 Personal history of nicotine dependence
CPT/HCPCS: 36415; 80053; 80156; 83735; 85025; 99282